=== PATIENT | male | born 1980 | race African-American/Black ===

== ENCOUNTER 2018-03-07 18:19 | Emergency (ER) | payer SELFPAY ==
[2018-03-07] MEDS ORDERED: IBUPROFEN 400 MG TABLET (FP) PO ONE ×2 (18:25→19:21)
[2018-03-07 18:27] VITALS: BP 112/61; PULSE 81; TEMP 97.7; BMI 22.4
--- NOTE | 2018-03-07 20:18 | PDOC ---
History of Present Illness - General Chief Complaint: Injury Stated Complaint: Injury Time Seen by Provider: 03/07/18 19:45 - History of Present Illness Initial Comments: 03/07/18 20:16 37-year-old male presents for evaluation of right ankle pain after playing basketball 3 days ago. He states he heard a painful pop. Past History - Past Medical History Allergies/Adverse Reactions: Allergies Allergy/AdvReac Type Severity Reaction Status Date / Time No Known Allergies Allergy Verified 07/12/12 17:29 Home Medications: Ambulatory Orders No Home Medications 0 dose .ROUTE UTDICT 07/12/12 COPD: No DVT: No Dialysis: No Hypercholesterolemia: No - Surgical History GI Surgery: No Neurologic Surgery: No - Immunization History Immunization Up to Date: No - Suicide/Smoking/Psychosocial Hx Smoking Status: No Smoking History: Never smoked Have you smoked in the past 12 months: No Number of Cigarettes Smoked Daily: 0 Information on smoking cessation initiated: No Hx Alcohol Use: No Drug/Substance Use Hx: No Review of Systems - Review of Systems Musculoskeletal: Yes: Joint Pain *Physical Exam - Vital Signs Last Vital Signs Temp Pulse Resp BP Pulse Ox 97.7 F 81 18 112/61 100 03/07/18 18:24 03/07/18 18:24 03/07/18 18:24 03/07/18 18:24 03/07/18 18:24 - Physical Exam Comments: 03/07/18 20:16 Right ankle skin color and temperature are normal. There is moderate swelling about the posterior aspect of the ankle and the area of the Achilles. There is a palpable defect in the Achilles tendon with a positive Prieto's test. No gross sensory deficits. Moderate Sedation - Procedure Monitoring Vital Signs: Procedure Monitoring Vital Signs Temperature 97.7 F 03/07/18 18:24 Pulse Rate 81 03/07/18 18:24 Respiratory Rate 18 03/07/18 18:24 Blood Pressure 112/61 03/07/18 18:24 O2 Sat by Pulse Oximetry (%) 100 03/07/18 18:24 ED Treatment Course - Medications Given in the ED: ED Medications Discontinued Medications Generic Name Dose Route Start Last Admin Trade Name Freq PRN Reason Stop Dose Admin Ibuprofen 800 mg 03/07/18 18:25 03/07/18 19:21 Motrin - PO 03/07/18 18:26 800 mg ONCE ONE Administration *DC/Admit/Observation/Transfer Diagnosis at time of Disposition: Achilles tendon injury - Discharge Dispostion Disposition: HOME Condition at time of disposition: Stable Decision to Admit order: No - Referrals Referrals: Taiwo Solis MD [Staff Physician] - - Patient Instructions Printed Discharge Instructions: Achilles Tendon Rupture, DI for Achilles Tendon Rupture Additional Instructions: Went in place. You may only take Tylenol as needed for pain and as directed. Return to the emergency room should symptoms worsen or go unresolved. Follow-up with orthopedic surgery in 2-3 days for further evaluation and treatment options. You must follow-up with orthopedic surgery this is an problem that requires operative intervention - Post Discharge Activity
== END 2018-03-07 20:27 | disposition home or self-care (01) ==
LOC: JERFT 18:19
DX: S86.001A Unspecified injury of right Achilles tendon, initial encounter (principal); X58.XXXA Exposure to other specified factors, initial encounter; Y93.67 Activity, basketball; Y92.310 Basketball court as the place of occurrence of the external cause
CPT/HCPCS: 73610-TC-RT-FY; 73630-TC-RT-FY; 99281-25

== ENCOUNTER 2019-09-16 19:20 | Emergency (ER) | payer OTHER ==
[2019-09-16 19:33] VITALS: BP 110/70; PULSE 62; TEMP 97.7; BMI 23.7
--- NOTE | 2019-09-17 00:05 | PDOC ---
Documentation entered by Bassam Gonzalez SCRIBE, acting as scribe for Yina Christianson MD. Yina Christianson MD: This documentation has been prepared by the Lisa almendarez Angel, SCRIBE, under my direction and personally reviewed by me in its entirety. I confirm that the documentation accurately reflects all work, treatment, procedures, and medical decision making performed by me. History of Present Illness - General Chief Complaint: Pain Stated Complaint: LEFT ACHILLES TENDON Time Seen by Provider: 09/16/19 19:22 History Source: Patient Exam Limitations: No Limitations - History of Present Illness Initial Comments: 09/16/19 20:29 The patient is a 38 year old male with a significant past medical history of right ruptured achilles tendon (About a year ago) who presents to the ED with an injury to his left leg. The patient states he was playing basketball yesterday and when going to run for the ball he felt something pop in his left leg. The patient states the pain that followed felt very similar to a previous injury he had in his right leg where he ruptured his achilles tendon. The patient has no other complaints here in the ED. Past History - Medical History Allergies/Adverse Reactions: Allergies Allergy/AdvReac Type Severity Reaction Status Date / Time No Known Allergies Allergy Verified 09/16/19 19:21 Home Medications: Ambulatory Orders No Home Medications 0 dose .ROUTE UTDICT 07/12/12 Diclofenac Sodium 75 mg PO BID PRN #20 tablet. 09/16/19 COPD: No DVT: No Dialysis: No Hypercholesterolemia: No Other medical history: Pt denies - Surgical History GI Surgery: No Neurologic Surgery: No - Immunization History Immunization Up to Date: No - Psycho-Social/Smoking History Smoking Status: No Smoking History: Never smoked Have you smoked in the past 12 months: No Number of Cigarettes Smoked Daily: 0 Information on smoking cessation initiated: No - Substance Abuse Hx (Audit-C & DAST Scrn) How often the patient has a drink containing alcohol: Monthly or less Score: In Men: 4 or > Positive; In Women: 3 or > Positive: 1 Screen Result (Pos requires Nsg. Audit-10AR): Negative In the last yr the pt used illegal drug/Rx for NonMed reason: No Score: Yes response is considered Positive: 0 Screen Result (Positive result requires Nsg. DAST-10): Negative Review of Systems - Review of Systems Able to Perform ROS?: Yes Comments:: 09/16/19 20:31 GENERAL/CONSTITUTIONAL: No fever or chills. No weakness. HEAD, EYES, EARS, NOSE AND THROAT: No change in vision. No ear pain or discharge. No sore throat. CARDIOVASCULAR: No chest pain or shortness of breath. RESPIRATORY: No cough, wheezing, or hemoptysis. GASTROINTESTINAL: No nausea, vomiting, diarrhea or constipation. GENITOURINARY: No dysuria, frequency, or change in urination. MUSCULOSKELETAL: +LLE pain. No neck or back pain. SKIN: No rash NEUROLOGIC: No headache, vertigo, loss of consciousness, or change in strength/sensation. ENDOCRINE: No increased thirst. No abnormal weight change. HEMATOLOGIC/LYMPHATIC: No anemia, easy bleeding, or history of blood clots. ALLERGIC/IMMUNOLOGIC: No hives or skin allergy. *Physical Exam - Vital Signs Last Vital Signs Temp Pulse Resp BP Pulse Ox 97.7 F 62 17 110/70 98 09/16/19 19:22 09/16/19 19:22 09/16/19 19:22 09/16/19 19:22 09/16/19 19:22 - Physical Exam 09/16/19 21:08 GENERAL: Awake, alert, and fully oriented, in no acute distress HEAD: No signs of trauma EYES: PERRLA, EOMI, sclera anicteric, conjunctiva clear ENT: Auricles normal inspection, hearing grossly normal, nares patent, oropharynx clear without exudates. Moist mucosa NECK: Normal ROM, supple, no lymphadenopathy, JVD, or masses LUNGS: Breath sounds equal, clear to auscultation bilaterally. No wheezes, and no crackles HEART: Regular rate and rhythm, normal S1 and S2, no murmurs, rubs or gallops ABDOMEN: Soft, nontender, normoactive bowel sounds. No guarding, no rebound. No masses EXTREMITIES: +LLE mild tenderness of gastrocnemius. Moderate tenderness of achilles tendon at insertion. No step offs palpated. Prieto test positive. No other edema, deformity or ecchymosis. NEUROLOGICAL: Cranial nerves II through XII grossly intact. Normal speech, normal gait SKIN: Warm, Dry, normal turgor, no rashes or lesions noted. ED Progress Note - Progress Note Progress Note: As noted above, this 38-year-old man without significant past medical history but a history of right Achilles tendon injury last year presents with similar episode of sudden pain and "pop" sensation in his left Achilles tendon insertion area yesterday. This occurred when he was playing basketball. Since then, he has wrapped the lower leg with an Brian wrap. Patient did not fall or otherwise injure any other area of his body. Exam as noted Clinical presentation most consistent with left-sided Achilles tendon injury, possible rupture. On exam, there was no step off palpated above the calcaneus but Prieto test was positive. Posterior leg splint fashioned from Ortho-Glass material and attached using Brian wraps. Distal neurovascular functioning intact after placement of the leg splint. The patient did not consult orthopedics (even though he was referred) last year when his right Achilles tendon was injured. He was strongly urged to follow-up with orthopedic group;[facility] is credit administration manager and referral information provided for the patient. Patient was fitted with crutches and crutch walking instruction given. He should elevate his left leg as much as possible over the next few days. Prescription for diclofenac 75 mg twice a day as needed to be taken with food, sent to his pharmacy. He should return to the emergency room if he has severe, persistent pain or numbness. Discharge - Discharge Information Problems reviewed: Yes Clinical Impression/Diagnosis: Achilles tendon injury Qualifiers: Encounter type: initial encounter Laterality: left Qualified Code(s): S86.002A - Unspecified injury of left Achilles tendon, initial encounter Condition: Stable Disposition: HOME - Additional Discharge Information Prescriptions: Diclofenac Sodium 75 mg PO BID PRN #20 tablet.dr VILLANUEVA Reason: Pain - Follow up/Referral Referrals: Ilan Edwards MD [Staff Physician] - Call tomorrow - Patient Discharge Instructions Patient Printed Discharge Instructions: Achilles Tendinopathy Additional Instructions: Elevate left lower leg is much as possible until seen by orthopedist Diclofenac 75 mg twice a day as needed for pain; take with food Keep splint in place and use crutches for ambulation until seen by orthopedist Call orthopedic office ( service) in a.m. to arrange follow-up within the next 2 to 3 days - Post Discharge Activity
== END 2019-09-16 20:38 | disposition home or self-care (01) ==
LOC: FER 19:20
DX: S86.002A Unspecified injury of left Achilles tendon, initial encounter (principal)
CPT/HCPCS: 99283-25

== ENCOUNTER 2020-07-18 12:22 | Emergency (ER) | payer OTHER ==
[2020-07-18 12:35] VITALS: BP 127/82; PULSE 67; TEMP 97.8; BMI 23.1
[2020-07-18] MEDS ORDERED: IBUPROFEN 400 MG TABLET (FP) PO ONE ×2 (12:57→13:09)
== END 2020-07-18 13:53 | disposition home or self-care (01) ==
LOC: FER 12:22
DX: M25.511 Pain in right shoulder (principal)
CPT/HCPCS: 73030-TC-RT-FY; 99283-25

== ENCOUNTER 2022-12-25 22:01 | Emergency (ER) | payer OTHER ==
[2022-12-25 22:10] VITALS: BP 109/78; PULSE 64; RESP 17; TEMP 98.1; BMI 22.4
[2022-12-25] MEDS ORDERED: IBUPROFEN 600 MG TABLET (FP) PO ONE ×2 (22:21→22:46)
[2022-12-25] MEDS ORDERED: DIPHTH,PERTUSS(ACELL),TET 0.5 ML DISP.SYRIN IM ONE ×2 (22:42→22:46)
[2022-12-25] MEDS ORDERED: AMOX TR/POT CLAV 875MG/125MG TABLETS (FP) PO ONE ×2 (22:56)
[2022-12-25] MEDS ORDERED: AMOX TR/POT CLAV 875MG/125MG TABLETS (FP) ONE (22:59)
== END 2022-12-25 23:04 | disposition home or self-care (01) ==
LOC: FER 22:01
PROC: 3E0234Z Introduction of Serum, Toxoid and Vaccine into Muscle, Percutaneous Approach (ICD-10-PCS; principal; 2022-12-25)
DX: S39.011A Strain of muscle, fascia and tendon of abdomen, initial encounter (principal); S63.613A Unspecified sprain of left middle finger, initial encounter; R22.32 Localized swelling, mass and lump, left upper limb
CPT/HCPCS: 73130-TC-LT-FY; 90471; 90715; 99283-25

== ENCOUNTER 2023-02-17 08:27 | Emergency (ER) | payer OTHER ==
[2023-02-17 08:35] VITALS: BP 103/63; PULSE 73; RESP 18; TEMP 98.1; BMI 22.4
== END 2023-02-17 09:51 | disposition home or self-care (01) ==
LOC: FER 08:27
DX: M79.675 Pain in left toe(s) (principal); W20.8XXA Other cause of strike by thrown, projected or falling object, initial encounter; Y99.0 Civilian activity done for income or pay
CPT/HCPCS: 73660-TC-LT-FY; 99283-25